=== PATIENT | male | born 1995 | race Caucasian/White ===

== ENCOUNTER 2017-05-09 19:54 | Inpatient (IN) | payer MEDICAID ==
[2017-05-09] MEDS ORDERED: Benztropine 1 mg/mL 2 mL Vial IM STA (20:22)
[2017-05-09] MEDS ORDERED: Benztropine 1 mg/mL 2 mL Vial ONE (20:36)
--- NOTE | 2017-05-09 20:46 | ED Physician Chart ---
ED Chief Complaint/HPI - Patient Information Date Seen:: 05/09/17 Time Seen:: 20:00 Chief Complaint:: Dystonia History of Present Illness:: pt developed EPR/Dystonia after receiving a Rx of Haldol for the first time this morning today after D/C from a Psychiatric Facility for Psychosis/ Schizophrenia/Bipolar Dx; no report of trauma, H/As, S/T, neck/jaw pain, cough, C/P, SOB, Abd. Pain, A/N/V/D/C, fever, chills, SIs, or urinary s/s; pt is eating and urinating well; pt last urinated 1/2 hour [employer] Allergies:: Allergies Allergy/AdvReac Type Severity Reaction Status Date / Time methylphenidate Allergy Verified 05/09/17 20:21 [From Narrable] Vitals:: Vital Signs - 8 hr 05/09/17 20:05 Temp 98.6 F HR 88 RR 16 BP 149/57 O2 Sat % 97 Historian:: Patient, EMS Review:: Nurse's Note Reviewed, EMS run form Reviewed ED Review of Systems - Review of Systems General/Constitutional: No fever, No chills, No weight loss, No weakness, No diaphoresis, No edema, No loss of appetite Skin: No skin lesions, No rash, No bruising Head: No headache, No light-headedness Eyes: No loss of vision, No pain, No diplopia ENT: No earache, No nasal drainage, No sore throat, No tinnitus Neck: No neck pain, No swelling, No thyromegaly, No stiffness, No mass noted Cardio Vascular: Chest pain, Palpitations, No PND, No orthopnea, No edema Pulmonary: No SOB, No cough, No sputum, No wheezing GI: No nausea, No vomiting, No diarrhea, No pain, No melena, No hematochezia, No constipation, No hematemesis G/U: No dysuria, No frequency, No hematuria, No nacturia Musculoskeletal: No bone or joint pain, No back pain, No muscle pain Endocrine: No polyuria, No polydipsia Psychiatric: Prior psych history, No depression, No anxiety, No suicidal ideation, No homicidal ideation, Auditory hallucination, No visual hallucination Hematopoietic: No bruising, No lymphadenopathy Allergic/Immuno: No urticaria, No angioedema Neurological: No syncope, No focal symptoms, No weakness, No paresthesia, No headache, No seizure, No dizziness, No confusion, No vertigo ED Past Medical History - Past Medical History Obtainable: Yes Past Medical History: No significant medical hx Family History: None Social History: Non Smoker, No Alcohol, No Drug Use, Single, Homeless Surgical History: None Psychiatricy History: Schizophrenia, Bipolar Medication: Reviewed Family Medical History - Family Member Mother History Unknown: Yes ED Physical Exam - Physical Examination General/Constitutional: Awake, Well-developed, well-nourished, Alert, No distress, GCS 15, Non-toxic appearing, Ambulatory Head: Atraumatic Eyes: Lids, conjuctiva normal, PERRL, EOMI Skin: Nl inspection, No rash, No skin lesions, No ecchymosis, Well hydrated, No lymphadenopathy ENMT: External ears, nose nl, TM canals nl, Nasal exam nl, Lips, teeth, gums nl , Oropharynx nl, Tonsils nl Neck: Nontender, Full ROM w/o pain, No JVD, No nuchal rigidity, No bruit, No mass, No stridor Other Neck comments:: supple; no meningeal signs; no cervical tenderness; no bruits Respiratory: Nl effort/Exclusion, Clear to Auscultation, No Wheeze/Rhonchi/Rales Cardio Vascular: RRR, No murmur, gallop, rubs, NL S1 S2, Carotid/Femoral/Distal pulses equal bilaterally GI: No tenderness/rebounding/guarding, No organomegaly, No hernia, Normal BS's, Nondistended, No mass/bruits, No McBurney tenderness, Rectum exam nl Other GI comments:: no pulsatile masses : No CVA tenderness Extremities: No tenderness or effusion, Full ROM, normal strength in all extremities, No edema, Normal digits & nails Neuro/Psych: Alert/oriented, DTR's symmetric, Normal sensory exam, Normal motor strength, Judgement/insight normal, Mood normal, Normal gait, No focal deficits Other Neuro/Psych comments:: + Dystonia; + EPRs; no SIs; Mood/Affect: Stable; no delusions; no hallucinations ; no psychotic behavior; no suicidal ideations Misc: Normal back, No paraspinal tenderness ED Labs/Radiology/EKG Results - Lab Results Comments:: Na+: 132; CPK: 2093; CK-MB: 7.3 - Radiology Results Comments:: NAD - EKG Interpretations EKG Time:: 21:44 Rate & Rhythm: 75; NSR Comments:: ST-T Elevation in 2,3, and AVF; Hyperacute T-Waves ED Septic Shock - . Is Septic Shock (SBP<90, OR Lactate>4 mmol\L) present?: No - <6hrs of presentation: Vital Signs: Vital Signs - 8 hr 05/09/17 20:05 Temp 98.6 F HR 88 RR 16 BP 149/57 O2 Sat % 97 ED Reassessment (Disposition) - Reassessment Reassessment Condition:: Improved - Diagnosis Diagnosis:: Dx: Myocardial Ischemia; R/O: MT; Hyponatremia; Dystonia; EPRs; Medication Side Effects; Chest Pain; Myalgias; Myositis - Aftercare/Follow up Instructions Aftercare/Follow-Up Instructions:: Counseled pt regarding lab results/diagnosis & need follow up, Counseled pt & family regarding lab results/diagnosis & need follow up - Patient Disposition Discharge/Transfer:: Acute Care w/in this hosp Accepting Physician:: Dr. Borges Time Called:: 2199 Time Responded:: 22:00 Admitted to:: Telemetry Spoke to:: Dr. Borges Admitting Medical Physician:: Dr. Borges Condition at Disposition:: Stable, Improved
[2017-05-09 22:09] LABS: % BASOPHILS 0.5 % (0.0-2.0); % EOSINOPHILS 1.1 % (0.0-5.0); % LYMPHOCYTES 20.4 % (20.0-50.0); % MONOCYTES 6.2 % (2.0-10.0); % NEUTROPHILS 71.8 % (40.0-80.0); EOSINOPHILE ABSOLUTE 0.1 Th/cmm (0.1-0.4); HEMATOCRIT 37.6 % (41.0-60); HEMOGLOBIN 12.8 gm/dL (12-16); MEAN CELL VOLUME 86.6 fl (80-99); MEAN CORPUSCULAR HEMOGLOBIN 29.4 pg (26.0-30.0); MEAN PLATELET VOLUME 8.3 fl; MONOCYTE ABSOLUTE 0.6 Th/cmm (0.3-1.0); PLATELET COUNT 256 Th/cmm (150-400); RED BLOOD COUNT 4.35 Mil/cmm (4.30-5.70); RED CELL DISTRIBUTION WIDTH 12.2 % (11.5-20.0); WHITE BLOOD COUNT 9.7 Th/cmm (4.8-10.8)
[2017-05-09] MEDS ORDERED: Morphine Sulfate 2 mg/mL 1mL Syr IV STA (22:14)
[2017-05-09 22:22] LABS: ALB/GLOB RATIO 2.1 (1.0-1.8); ALBUMIN 4.5 gm/dL (4.2-5.5); ALKALINE PHOSPHATASE 103 U/L (34-104); ANION GAP 10.6 (7.0-16.0); BILIRUBIN,TOTAL 0.3 mg/dL (0.3-1.0); BUN - UREA NITROGEN 12 mg/dL (7-25); CALCIUM SERUM 9.4 mg/dL (8.6-10.3); CARBON DIOXIDE 24.9 mEq/L (21.0-31.0); CHLORIDE 100 mEq/L (98-107); CHOLESTEROL 140 mg/dL (<200); CREATININE - SERUM 0.7 mg/dL (0.7-1.3); CREATININE KINASE 2093 U/L (30-223); GFR AFRICAN-AMERICAN > 60.0 ml/min (>90); GFR NON AFRICAN-AMERICAN > 60.0 ml/min; GLUCOSE 115 mg/dL (70-105); HDL -HIGH DENSITY LIPOPROTEIN 45 mg/dL (23-92); POTASSIUM SERUM 3.5 mEq/L (3.5-5.1); SGOT 54 U/L (13-39); SGPT/ALT 46 U/L (7-52); SODIUM SERUM 132 mEq/L (136-145); TOTAL PROTEIN,SERUM 6.6 gm/dL (6.0-8.3); TRIGLYCERIDES 103 mg/dL (<150)
[2017-05-09 22:33] LABS: INR 0.98 (0.5-1.4); PROTHROMBIN TIME (TEST) 10.2 SECONDS (9.5-11.5)
[2017-05-09 23:00] LABS: DDIMER QUANT 114 ng/mL (100-400)
[2017-05-09] MEDS ORDERED: Aspirin 325 mg EC PO ONE (23:16)
[2017-05-09] MEDS ORDERED: Aspirin 81mg Chewable Tab ONE (23:54)
[2017-05-09] MEDS ORDERED: Morphine Sulfate 2 mg/mL 1mL Syr ONE (23:54)
[2017-05-10] MEDS ORDERED: D5-0.45NS w/20 mEq KCL 1,000 ML IV SCH (00:45)
[2017-05-10 06:17] LABS: % BASOPHILS 0.4 % (0.0-2.0); % EOSINOPHILS 3.1 % (0.0-5.0); % LYMPHOCYTES 36.7 % (20.0-50.0); % MONOCYTES 9.9 % (2.0-10.0); % NEUTROPHILS 49.9 % (40.0-80.0); EOSINOPHILE ABSOLUTE 0.2 Th/cmm (0.1-0.4); HEMATOCRIT 37.6 % (41.0-60); HEMOGLOBIN 12.9 gm/dL (12-16); LYMPHOCYTE ABSOLUTE 2.7 Th/cmm (1.5-3.0); MEAN CELL VOLUME 86.3 fl (80-99); MEAN CORPUSCULAR HEMOGLOBIN 29.7 pg (26.0-30.0); MEAN CORPUSCULAR HGB CONC 34.4 pg (28.0-36.0); MEAN PLATELET VOLUME 8.6 fl; MONOCYTE ABSOLUTE 0.7 Th/cmm (0.3-1.0); NEUTROPHILE ABSOLUTE 3.7 Th/cmm (1.8-8.0); PLATELET COUNT 235 Th/cmm (150-400); RED BLOOD COUNT 4.36 Mil/cmm (4.30-5.70); RED CELL DISTRIBUTION WIDTH 12.3 % (11.5-20.0)
[2017-05-10 06:25] LABS: WHITE BLOOD COUNT 7.3 Th/cmm (4.8-10.8)
[2017-05-10 06:30] LABS: ALB/GLOB RATIO 1.9 (1.0-1.8); ALKALINE PHOSPHATASE 110 U/L (34-104); ANION GAP 9.6 (7.0-16.0); BILIRUBIN,TOTAL 0.4 mg/dL (0.3-1.0); BUN - UREA NITROGEN 12 mg/dL (7-25); CALCIUM SERUM 9.1 mg/dL (8.6-10.3); CARBON DIOXIDE 25.2 mEq/L (21.0-31.0); CHLORIDE 105 mEq/L (98-107); CREATININE - SERUM 0.7 mg/dL (0.7-1.3); CREATININE KINASE 1594 U/L (30-223); GFR AFRICAN-AMERICAN > 60.0 ml/min (>90); GFR NON AFRICAN-AMERICAN > 60.0 ml/min; GLUCOSE 99 mg/dL (70-105); POTASSIUM SERUM 3.8 mEq/L (3.5-5.1); SGOT 42 U/L (13-39); SGPT/ALT 39 U/L (7-52); SODIUM SERUM 136 mEq/L (136-145); TOTAL PROTEIN,SERUM 6.1 gm/dL (6.0-8.3)
--- NOTE | 2017-05-10 08:33 | Diagnostic Imaging Report ---
Portable chest x-ray Time: 0806 hours History: Chest pain Allowing for portable technique the heart size is normal. No focal pulmonary parenchymal processes. No hilar or mediastinal abnormalities. Impression: No acute abnormalities.
== END 2017-05-10 14:50 | disposition left against medical advice (07) | DRG 58 ==
LOC: ER 19:54 → TELE 23:20
PROVIDERS: ADMIT Family Medicine; ATTEND Family Medicine
DX: G24.9 Dystonia, unspecified (principal); E87.1 Hypo-osmolality and hyponatremia; F25.9 Schizoaffective disorder, unspecified; F31.9 Bipolar disorder, unspecified; R07.9 Chest pain, unspecified; M60.9 Myositis, unspecified; I25.9 Chronic ischemic heart disease, unspecified; Z53.21 Procedure and treatment not carried out due to patient leaving prior to being seen by health care provider; Z88.8 Allergy status to other drugs, medicaments and biological substances
CPT/HCPCS: 36415-UA; 71045-TC; 80053-TC; 80061-TC; 82550-TC; 82553; 83880-TC; 84484-TC; 85025-TC; 85379-TC; 85610-TC; 90784; 93005; 96374; J0515; J1200; J1885; J2270; Z7610

== ENCOUNTER 2018-04-06 15:06 | Emergency (ER) | payer MEDICAID ==
--- NOTE | 2018-04-06 15:18 | ED Physician Chart ---
ED Chief Complaint/HPI - Patient Information Date Seen:: 04/06/18 Time Seen:: 15:15 Chief Complaint:: ok to book History of Present Illness:: this is a 22 yo male bib the police for ok to book. he states that he feels ok and has a history of asthma. Allergies:: Allergies Allergy/AdvReac Type Severity Reaction Status Date / Time methylphenidate Allergy Verified 05/09/17 20:21 [From Concerta] Vitals:: Vital Signs - 8 hr 04/06/18 15:10 Temp 97.8 F HR 94 RR 18 BP 130/107 O2 Sat % 100 Historian:: Patient, EMS Review:: Nurse's Note Reviewed ED Review of Systems - Review of Systems General/Constitutional: No fever, No chills, No weight loss, No weakness, No diaphoresis, No edema, No loss of appetite Skin: No skin lesions, No rash, No bruising Head: No headache, No light-headedness Eyes: No loss of vision, No pain, No diplopia ENT: No earache, No nasal drainage, No sore throat, No tinnitus Neck: No neck pain, No swelling, No thyromegaly, No stiffness, No mass noted Cardio Vascular: No chest pain, No palpitations, No PND, No orthopnea, No edema Pulmonary: No SOB, No cough, No sputum, No wheezing GI: No nausea, No vomiting, No diarrhea, No pain, No melena, No hematochezia, No constipation, No hematemesis G/U: No dysuria, No frequency, No hematuria Musculoskeletal: No bone or joint pain, No back pain, No muscle pain Endocrine: No polyuria, No polydipsia Psychiatric: No prior psych history, No depression, No anxiety, No suicidal ideation Hematopoietic: No bruising, No lymphadenopathy Allergic/Immuno: No urticaria, No angioedema Neurological: No syncope, No focal symptoms, No weakness, No paresthesia, No headache, No seizure, No dizziness, No confusion, No vertigo ED Past Medical History - Past Medical History Obtainable: Yes Past Medical History: Asthma/COPD Family Medical History - Family Member Mother History Unknown: Yes Ethnicity: ED Physical Exam - Physical Examination General/Constitutional: Awake, Well-developed, well-nourished, Alert, No distress, GCS 15, Non-toxic appearing, Ambulatory Head: Atraumatic Eyes: Lids, conjuctiva normal, PERRL, EOMI Skin: Nl inspection, No rash, No skin lesions, No ecchymosis, Well hydrated, No lymphadenopathy ENMT: External ears, nose nl, Nasal exam nl, Lips, teeth, gums nl Neck: Nontender, Full ROM w/o pain, No JVD, No nuchal rigidity, No bruit, No mass, No stridor Respiratory: Nl effort/Exclusion, Clear to Auscultation, No Wheeze/Rhonchi/Rales Cardio Vascular: RRR, No murmur, gallop, rubs, NL S1 S2 GI: No tenderness/rebounding/guarding, No organomegaly, No hernia, Normal BS's, Nondistended, No mass/bruits, No McBurney tenderness : No CVA tenderness Extremities: No tenderness or effusion, Full ROM, normal strength in all extremities, No edema, Normal digits & nails Neuro/Psych: Alert/oriented, DTR's symmetric, Normal sensory exam, Normal motor strength, Judgement/insight normal, Mood normal, Normal gait, No focal deficits Misc: Normal back, No paraspinal tenderness ED Assessment - Assessment General Assessment: ok to book ED Septic Shock - . Is Septic Shock (SBP<90, OR Lactate>4 mmol\L) present?: No - <6hrs of presentation: Vital Signs: Vital Signs - 8 hr 04/06/18 15:10 Temp 97.8 F HR 94 RR 18 BP 130/107 O2 Sat % 100 ED Reassessment (Disposition) - Diagnosis Diagnosis:: normal examination - Aftercare/Follow up Instructions Aftercare/Follow-Up Instructions:: Counseled pt regarding lab results/diagnosis & need follow up, Refer to Discharge Instructions, Counseled pt & family regarding lab results/diagnosis & need follow up - Patient Disposition Discharge/Transfer:: Custodial/Long Term Condition at Disposition:: Unchanged
== END 2018-04-06 15:15 | disposition still patient (30) ==
LOC: ER 15:06
DX: Z00.00 Encounter for general adult medical examination without abnormal findings (principal); J44.9 Chronic obstructive pulmonary disease, unspecified; Z88.8 Allergy status to other drugs, medicaments and biological substances
CPT/HCPCS: Z7502